=== PATIENT | male | born 1940 | race Caucasian/White ===

== ENCOUNTER 2016-12-03 15:55 | Inpatient (IN) | payer OTHER ==
[~2016-12-03] VITALS: Ht 170.2 cm; Wt 76.0 kg
[2016-12-11] MEDS ORDERED: ALBU0.63 NEB (15:49)
[2016-12-11] MEDS ORDERED: ALBU6.7H INH (15:49)
[2016-12-11] MEDS ORDERED: ALLE10TA12 PO (15:49)
[2016-12-11] MEDS ORDERED: LISI-515 PO (15:49)
[2016-12-11] MEDS ORDERED: TRAM50TA PO (15:49)
[2016-12-11] MEDS ORDERED: TRIA37.53 PO (15:49)
[2016-12-11] MEDS ORDERED: SIMV20TA PO (15:49)
[2016-12-11] MEDS ORDERED: MOBI15TA PO (15:49)
[2016-12-11] MEDS ORDERED: DOCU100T9 PO (15:49)
[2016-12-11] MEDS ORDERED: MONT10TA4 PO (15:49)
[2016-12-11] MEDS ORDERED: TAMS0.4C4 PO (15:49)
[2016-12-11] MEDS ORDERED: IPRA0.02 NEB (15:49)
[2016-12-11] MEDS ORDERED: MESA4ENE2 RECTAL (15:53)
[2016-12-16] MEDS ORDERED: CHLORHEXIDINE GLUCONATE 4% SOLN 120 ML BTL TOPICAL SCH (05:45)
[2016-12-16] MEDS ORDERED: METOPROLOL TARTRATE 25 MG TAB PO PRN (05:45)
[2016-12-16] MEDS ORDERED: INSULIN HUMAN REGULAR 1,000 UNITS/10 ML VIAL SQ PRN (05:45)
[2016-12-16] MEDS ORDERED: POVIDONE IODINE 5% (ANTISEPSIS KIT) 4 APPLICATIONS EACH NARE PRN (05:45)
[2016-12-16] MEDS ORDERED: LACTATED RINGER'S 1000 ML IV PRN (05:45)
[2016-12-16] MEDS ORDERED: VANCOMYCIN 1000 MG/NS 250 ML (for <70 kg) IV SCH ×2 (05:45)
[2016-12-16] MEDS ORDERED: ceFAZolin 2 GM PREMIX 50 ML IV SCH (05:45)
[2016-12-16] MEDS ORDERED: SODIUM CHLORID 0.9% 500 ML IV PRN (05:45)
[2016-12-16] MEDS ORDERED: CHLORHEXIDINE GLUCONATE 2 % 1 PACK (2 CLOTHS) TOPICAL PRN (05:45)
[2016-12-16] MEDS ORDERED: ASPI81TA11 PO (06:44)
[2016-12-16 06:45] VITALS: BP 119/72; PULSE 66; RESP 20; TEMP 98.6; O2SAT 97
[2016-12-16] MEDS ORDERED: MIDAZOLAM HCL 2 MG/2 ML VIAL ONE (07:52)
[2016-12-16] MEDS ORDERED: fentaNYL CITRATE 250 MCG/5 ML AMP ONE ×2 (07:52→12:10)
[2016-12-16] MEDS ORDERED: FAMOTIDINE 20 MG/2 ML VIAL ONE (07:52)
[2016-12-16] MEDS ORDERED: ACETAMINOPHEN 1000 MG/100 ML VIAL IV ONE (07:53)
[2016-12-16] MEDS ORDERED: DEXAMETHASONE SOD PHOS 4 MG/ML VIAL ONE (07:54)
[2016-12-16] MEDS ORDERED: EXPAREL PERI-ARTICULAR INJECTION (TOTAL VOL. 60 ML) P-ARTICULR SCH ×2 (08:00)
[2016-12-16] MEDS ORDERED: TRANEXAMIC ACID INJ 1,150 MG in SODIUM CHLORIDE 0.9% INJ 100 ML IV SCH (08:00)
[2016-12-16] MEDS ORDERED: ceFAZolin INJ 1,000 MG VIAL ONE (08:25)
[2016-12-16] MEDS ORDERED: GENTAMICIN SULFATE 80 MG/2 ML VIAL ONE (08:48)
[2016-12-16] MEDS ORDERED: WALKER WHEELS/F1 MIS (10:03)
[2016-12-16] MEDS ORDERED: XARE10TA PO (10:03)
[2016-12-16] MEDS ORDERED: HYDR-3583 PO (10:03)
[2016-12-16] MEDS ORDERED: diphenhydrAMINE HCL 25 MG CAP PO PRN (11:45)
[2016-12-16] MEDS ORDERED: Post-op Orders (for Pharmacy) MISC XX ONE (11:45)
[2016-12-16] MEDS ORDERED: SODIUM CHLORIDE 0.9% FLUSH 5 ML FLUSH IVF PRN (11:45)
[2016-12-16] MEDS ORDERED: RESP: ALBUTEROL 0.63 MG/3 ML NEB (PRN) NEB (11:45)
[2016-12-16] MEDS ORDERED: MORPHINE SULFATE 4 MG/ML INJ IV PUSH PRN (11:45)
[2016-12-16] MEDS ORDERED: NALOXONE HCL 0.4 MG/ML AMP IV PRN (11:45)
[2016-12-16] MEDS ORDERED: RESP: IPRATROPIUM 0.5 MG/2.5 ML NEB NEB PRN (11:45)
[2016-12-16] MEDS ORDERED: ONDANSETRON HCL 4 MG/2 ML VIAL IVP PRN (11:45)
[2016-12-16] MEDS ORDERED: ALBUTEROL SULFATE 90 MCG/ACT HFA 18 GM INHALER INH PRN (11:45)
--- NOTE | 2016-12-16 11:54 | PD.OP ---
cc: Andre Redmond MD Operative Report Date of Surgery: December 16, 2016 Preoperative Diagnosis: severe hip OA with retained hardware Postoperative Diagnosis: Procedure: Conversion to right total hip arthroplasty with removal of deep hardware Anesthesia: Gen. Surgeon: Andre Redmond Regulatory Affairs Coordinator(s): CHET White PA-C The surgical procedure was assisted by my physician orthopedic assistant. My P.A. presence was necessary throughout this case for the manipulation and positioning of the surgical extremity. My P.A. was assisting me throughout the duration of this procedure. The skill set of a physician orthopedic assistant was medically necessary to complete this procedure. During the surgical case the rad tech was working at the back table and the physician orthopedic assistant was directly assisting me. Operation and Findings: Weight bear as tolerated. DRAINS: 7-mm MARIA ELENA drain. IMPLANTS USED DePuy SROM 16 D large sleeve, 16 x [id number] stem with a size [52] [place]newood Gription cup and a [+9] ceramic Biolox ceramic head. DETAILS OF PROCEDURE: This patient has a long history of hip pain. Patient was found to have severe osteoarthritis. He has a history of 2 prior hip surgeries with retained hardware. The patient had radiographic evidence of joint space narrowing with [id number] arthritis and osteophytes around the acetabulum as well as the femoral head. There was also some cystic changes. The patient failed conservative treatment with pain medications, anti-inflammatories, physical therapy, assistive devices including a cane, as well as therapeutic injection of the hip. The patient wished to proceed with surgery and informed consent was obtained. Operative site was marked. I discussed both posterior approach and anterior approach with patient decision was made for posterior approach. Patient was brought to OR and placed on OR table. IV sedation and general anesthesia was administered by anesthesiologist. Patient was positioned lateral on the operating room table and was given IV antibiotics. Time-out procedure was performed. The operative hip and leg were prepped with alcohol followed by Hibiclens and draped in the usual sterile fashion. Clean Air Suite was used for this procedure. The procedure began with a 10-inch incision over the posterolateral thigh. Subcutaneous tissue was dissected with Bovie. The fascia of the iliotibial band was incised. Gluteus muscle was split in line with fibers. Charnley retractor was placed. Attention was now turned towards hardware removal. The blade plate was carefully exposed. A significant portion of the plate was covered in bone. Osteotomes were used to remove the heterotopic bone over the plate. Next the screws were identified. 3 of the screws were broken. The 2 other screws were removed using a screwdriver. The plate was now elevated using osteotomes. Hardware removal was difficult secondary to the amount of bone covering the plate. The plate was now carefully removed. At this point attention was turned towards removal of the broken screws. There were multiple broken screw fragments. Some of the screw fragments were removed using a broken screw removal set. 2 of the screw fragments could not be retrieved from the intramedullary canal. Piriformis and external rotator muscles were identified and then released from the posterior femur. The hip capsule was incised and sutures were placed to help retract the capsule. At this point the femoral head and neck were identified. With soft tissue protected, oscillating saw was used to make a cut through the femoral neck, the femoral head was now removed. At this point attention was turned to preparation of the acetabulum. The labrum was excised. The acetabulum was sequentially reamed appropriately. Care was taken to maintain appropriate version. A trial cup was placed and was found to be a good fit. A Wynnewood cup was now fully impacted into the acetabulum and found to have excellent fit. Hole eliminator was now placed. The liner was now impacted into the cup. At this point attention was turned towards preparation of the proximal femur. Retractors were placed around the proximal femur to allow for exposure. A box osteotome was used to remove the lateral cortex of the femoral neck. A broach was used to help lateralize the prosthesis. Canal finder was used to create a path down the canal. Next, the canal was sequentially reamed. The canal was reamed up to size 11.5. The reamer was placed down to a depth of 205 mm. This had a relatively good fit. Unfortunately one of the broken screws was still in the path of the reamer and cannot be retrieved. At this point the proximal segment was reamed up to size 16. The calcar was now milled up to size 16 D large. A trial prosthesis was now assembled. The trial prosthesis was now placed into the canal. Care was taken to keep appropriate anteversion. The neck was adjusted into appropriate anteversion. A trial +9 head was placed and the hip was reduced. Trial head was now was placed and the hip was found to have excellent stability with good range of motion. The leg lengths were measured under clinically and found to be equal compared to preoperatively. Trial prosthesis was removed. The stem components were now opened. The sleeve was impacted in position first. Next the stem was placed through the sleeve and impacted in appropriate version. The femoral head was placed. The hip was again reduced. Clinically leg lengths appeared to be equal with good range of motion of the hip. The wound was thoroughly irrigated. Hip capsule, external rotators, and iliotibial band was closed with #1 Vicryl. A drain was placed deep into the wound. Subcutaneous tissue was closed with 3-0 Vicryl and the skin was closed with james and Dermabond skin closure. The capsule layers were injected with a mixture of saline and bupivicaine. Dressings were applied. The patient was transferred to Recovery Room in stable condition. Andre Redmond MD December 16, 2016 11:54
[2016-12-16] MEDS ORDERED: DO NOT ADM ANY ANTICOAGULANT DRUGS PRN (12:00)
[2016-12-16] MEDS ORDERED: LACTATED RINGER'S 1000 ML INJ 1,000 ML IV ONE (12:00)
[2016-12-16] MEDS ORDERED: PROPOFOL 200 MG/20 ML AMP IV ONE (12:00)
[2016-12-16] MEDS ORDERED: ONDANSETRON HCL 4 MG/2 ML VIAL IV PUSH ONE (12:00)
[2016-12-16] MEDS ORDERED: ePHEDrine/NS 25 MG/5 ML SYR IV ONE (12:00)
[2016-12-16] MEDS ORDERED: *morphine SULFATE 8 MG/ML PERIprocedure ONLY ONE ×2 (12:08→12:45)
[2016-12-16] MEDS: ceFAZolin 2 GM PREMIX 50 ML IV SCH ×2 (13:47→21:12)
[2016-12-16] MEDS: KETOROLAC TROMETHAMINE 30 MG/ML (IVP) VIAL IV PUSH SCH ×2 (13:48→21:11)
--- NOTE | 2016-12-16 13:49 | RADRPT ---
EXAM DATE/TIME: 12/16/2016 13:21 [facility] COMPARISON: No previous studies available for comparison. INDICATIONS : Post op right hip arthroplasty. MEDICAL HISTORY : None. SURGICAL HISTORY : None. ENCOUNTER: Initial ACUITY: 1 day PAIN SCORE: 0/10 LOCATION: Right hip FINDINGS: Patient is status post placement of a right hip prosthesis. There is good position and alignment of t he prosthesis and bony structures. The bony structures are grossly intact. Postsurgical changes are p resent. CONCLUSION: Good position and alignment on this postoperative examination. Gino Gruber MD on December 16, 2016 at 13:47 Board Certified Radiologist. This report was verified electronically.
[2016-12-16 15:00] VITALS: BP 116/67; PULSE 60; RESP 17; TEMP 95.7; O2SAT 100
[2016-12-16] MEDS: VANCOMYCIN INJ 1,000 MG in SODIUM CHLOR 0.9% 250 ML INJ 250 ML IV SCH (18:34)
[2016-12-16 20:15] VITALS: BP 112/68; PULSE 81; RESP 17; TEMP 97.8; O2SAT 99
[2016-12-16] MEDS ORDERED: DOCUSATE SODIUM 200 MG PO SCH (21:00)
[2016-12-16] MEDS: ACETAMINOPHEN/HYDROcodone 325 MG/10 MG TAB PO PRN (21:10)
[2016-12-16] MEDS: PRAVASTATIN SOD 20 MG TAB PO SCH (21:11)
[2016-12-16] MEDS: MONTELUKAST SODIUM 10 MG TAB PO SCH (21:12)
[2016-12-16] MEDS: SODIUM CHLORIDE 0.9% FLUSH 5 ML FLUSH IVF SCH (21:12)
[2016-12-17] VITALS (8 sets, daily range): BP systolic 98–139; BP diastolic 59–66; PULSE 70–95; RESP 15–18; TEMP 97.3–99.2; O2SAT 96–100
[2016-12-17] MEDS: ceFAZolin 2 GM PREMIX 50 ML IV SCH (02:23)
[2016-12-17] MEDS: ACETAMINOPHEN/HYDROcodone 325 MG/10 MG TAB PO PRN ×4 (02:25→22:00)
[2016-12-17] MEDS: KETOROLAC TROMETHAMINE 30 MG/ML (IVP) VIAL IV PUSH SCH ×2 (05:27→14:36)
[2016-12-17] MEDS: VANCOMYCIN INJ 1,000 MG in SODIUM CHLOR 0.9% 250 ML INJ 250 ML IV SCH (06:09)
--- NOTE | 2016-12-17 06:46 | PD.ORT.PN ---
Subjective Subjective Remarks POD 1 s/p LOIS with revision right SUSAN doing well. pain controlled. no complaints. sat in chair yesterday Objective Vitals Vital Signs Date Time Temp Pulse Resp B/P Pulse Ox O2 Delivery O2 Flow Rate FiO2 12/17/16 04:35 97.7 70 17 100/60 100 12/17/16 00:15 98.2 75 18 98/59 100 12/16/16 20:15 97.8 81 17 112/68 99 12/16/16 18:11 Nasal Cannula 2.00 12/16/16 15:00 95.7 60 17 116/67 100 12/16/16 13:30 66 19 116/61 98 Nasal Cannula 2 12/16/16 13:15 64 21 117/56 97 Nasal Cannula 2 12/16/16 13:00 65 20 108/58 97 Nasal Cannula 2 12/16/16 12:30 66 17 91/58 98 Nasal Cannula 2 12/16/16 12:15 76 23 110/62 98 Nasal Cannula 2 12/16/16 12:05 97.4 80 20 127/67 99 Nasal Cannula 2 12/16/16 06:45 98.6 66 20 119/72 97 I/O 12/16/16 12/16/16 12/16/16 12/17/16 12/17/16 12/17/16 06:59 14:59 22:59 06:59 14:59 22:59 Intake Total 800 ml 809 ml 313 ml Output Total 1430 ml 540 ml 80 ml Balance -630 ml 269 ml 233 ml Intake Oral 480 ml IV Total 329 ml 313 ml Other 800 ml Output Urine Total 550 ml 450 ml Drainage Total 80 ml 90 ml 80 ml Estimated Blood Loss 800 ml # Bowel Movements 0 Objective Remarks RLE: Dressings clean and dry. intact. +drain. +knee brace. NVI Assessment & Plan Assessment and Plan 1) Right SUSAN with LOIS - POD 1 -WBAT -posterior hip precautions -daily dressing changes POD 2 -plan for DC to rehab vs home with C depending on progress -f/u with [facility] or [facility] in 2 weeks -DVT prophylaxis with lovenox. transition to xarelton upon DC Claudio Reese December 17, 2016 06:46
--- NOTE | 2016-12-17 06:47 | HHI.FF ---
Face to Face Verification Diagnosis: (1) Status post total hip replacement, right Physical Therapy Gait training Hip: Total hip, Protocol: Right, Posterior hip precautions, Progress to weight bearing Right LE Weight Bearing: WB as tolerated Nursing Dressing Changes: Daily dressing change, 4x4s, Paper tape, Xeroform I have seen patient Ar Salazar on 12/17/16. My clinical findings support the need for the requested home health care services because: Ltd mobility - disease progression I certify that my clinical findings support that this patient is homebound because: Post-op weakness Claudio Reese December 17, 2016 06:47
[2016-12-17 07:07] LABS: HEMATOCRIT 29.6 % (39.0-51.0); REVIEW FLAG FINAL
[2016-12-17] MEDS: SODIUM CHLORIDE 0.9% FLUSH 5 ML FLUSH IVF SCH ×2 (09:00→21:00)
[2016-12-17] MEDS: TAMSULOSIN HCL 0.4 MG CAP PO SCH (09:06)
[2016-12-17] MEDS: TRIAMTERENE/HCTZ 37.5 MG/25 MG CAP PO SCH (11:55)
[2016-12-17] MEDS: LISINOPRIL 10 MG TAB PO SCH (11:56)
[2016-12-17] MEDS: ENOXAPARIN SODIUM 30 MG/0.3 ML SYRINGE SQ SCH ×2 (11:58→22:00)
[2016-12-17] MEDS: DOCUSATE SODIUM 100 MG CAP PO SCH (21:59)
[2016-12-17] MEDS: PRAVASTATIN SOD 20 MG TAB PO SCH (22:00)
[2016-12-17] MEDS: MONTELUKAST SODIUM 10 MG TAB PO SCH (22:00)
[2016-12-18 00:55] VITALS: BP 103/53; PULSE 90; RESP 17; TEMP 99; O2SAT 95
[2016-12-18] MEDS: MAGNESIUM HYDROXIDE SUSP 30 ML CUP PO PRN ×2 (05:13→20:25)
[2016-12-18] MEDS: ACETAMINOPHEN/HYDROcodone 325 MG/10 MG TAB PO PRN ×3 (06:38→18:42)
[2016-12-18 08:00] VITALS: BP 100/62; PULSE 88; RESP 18; TEMP 99; O2SAT 97
[2016-12-18] MEDS: LISINOPRIL 10 MG TAB PO SCH (09:00)
[2016-12-18] MEDS: TRIAMTERENE/HCTZ 37.5 MG/25 MG CAP PO SCH (09:00)
[2016-12-18] MEDS: MESALAMINE ENEMA 4 GM/60 ML BTL RECTAL SCH (09:00)
--- NOTE | 2016-12-18 09:46 | PD.ORT.PN ---
Subjective Subjective Remarks Pain is controlled. Difficulty ambulating. Exploring rehabilitation center placement Objective Vitals Vital Signs Date Time Temp Pulse Resp B/P Pulse Ox O2 Delivery O2 Flow Rate FiO2 12/18/16 08:00 99.0 88 18 100/62 97 12/18/16 00:55 99.0 90 17 103/53 95 12/17/16 20:25 99.1 95 18 116/65 96 12/17/16 18:07 98 21 12/17/16 16:00 99.2 95 16 106/65 99 12/17/16 15:36 16 12/17/16 15:36 16 12/17/16 12:00 97.8 80 15 139/65 100 I/O 12/17/16 12/17/16 12/17/16 12/18/16 12/18/16 12/18/16 07:00 15:00 23:00 07:00 15:00 23:00 Intake Total 553 ml 840 ml 240 ml 480 ml Output Total 1080 ml 950 ml 430 ml 880 ml Balance -527 ml -110 ml -190 ml -400 ml Intake Oral 240 ml 840 ml 240 ml 480 ml IV Total 313 ml Output Urine Total 1000 ml 950 ml 300 ml 850 ml Drainage Total 80 ml 130 ml 30 ml # Voids 4 # Bowel Movements 0 0 0 Result Diagram: 12/17/16 0608 Imaging Last 72 hours Impressions Hip and Pelvis X-Ray 12/16/16 0000 Signed Impressions: Service Date/Time: Friday, December 16, 2016 13:21 - CONCLUSION: Good position and alignment on this postoperative examination. Gino Gruber MD Objective Remarks Right lower extremity: Clean dry dressings intact. Drain in place. Knee immobilizer. Distally intact sensation good capillary refills. Strong dorsiflexion plantar flexion Assessment & Plan Assessment and Plan 1) Right SUSAN with LOIS - POD 2 -WBAT -posterior hip precautions -daily dressing changes DC the drain today after physical therapy -plan for DC to rehab -f/u with [facility] or [facility] in 2 weeks -DVT prophylaxis with lovenox. transition to xarelto upon DC John Naylor Jr. Dec 18, 2016 09:46
[2016-12-18] MEDS: DOCUSATE SODIUM 100 MG CAP PO SCH ×2 (09:58→20:15)
[2016-12-18] MEDS: TAMSULOSIN HCL 0.4 MG CAP PO SCH (09:58)
[2016-12-18] MEDS: ENOXAPARIN SODIUM 30 MG/0.3 ML SYRINGE SQ SCH ×2 (10:11→22:35)
[2016-12-18] MEDS: SODIUM CHLORIDE 0.9% FLUSH 5 ML FLUSH IVF SCH ×2 (10:13→20:17)
[2016-12-18 12:00] VITALS: BP 122/79; PULSE 90; RESP 18; TEMP 98.6; O2SAT 100
[2016-12-18 16:00] VITALS: BP 110/64; PULSE 95; RESP 18; TEMP 99.8; O2SAT 98
[2016-12-18] MEDS: PRAVASTATIN SOD 20 MG TAB PO SCH (20:14)
[2016-12-18] MEDS: MONTELUKAST SODIUM 10 MG TAB PO SCH (20:15)
[2016-12-18 20:30] VITALS: BP 134/73; PULSE 105; RESP 17; TEMP 96.2; O2SAT 95
[2016-12-19] VITALS: BP 97/63; PULSE 100; RESP 18; TEMP 99.1; O2SAT 98
[2016-12-19] MEDS: ACETAMINOPHEN/HYDROcodone 325 MG/10 MG TAB PO PRN ×4 (02:32→22:07)
[2016-12-19 04:30] VITALS: BP 104/64; PULSE 96; RESP 18; TEMP 98.2; O2SAT 96
--- NOTE | 2016-12-19 07:33 | PD.ORT.PN ---
Subjective Subjective Remarks POD 3 s/p LOIS with revision right SUSAN doing well. pain controlled. reports slight pain but walking with therapy with minimal difficulty Objective Vitals Vital Signs Date Time Temp Pulse Resp B/P Pulse Ox O2 Delivery O2 Flow Rate FiO2 12/19/16 04:30 98.2 96 18 104/64 96 12/19/16 00:00 99.1 100 18 97/63 98 12/18/16 20:30 96.2 105 17 134/73 95 12/18/16 16:00 99.8 95 18 110/64 98 12/18/16 12:00 98.6 90 18 122/79 100 12/18/16 08:00 99.0 88 18 100/62 97 12/18/16 07:38 16 I/O 12/18/16 12/18/16 12/18/16 12/19/16 12/19/16 12/19/16 07:00 15:00 23:00 07:00 15:00 23:00 Intake Total 480 ml 980 ml 480 ml 480 ml Output Total 880 ml 300 ml 100 ml Balance -400 ml 680 ml 380 ml 480 ml Intake Oral 480 ml 980 ml 480 ml 480 ml Output Urine Total 850 ml 275 ml 100 ml Drainage Total 30 ml 25 ml # Voids 3 1 3 # Bowel Movements 0 0 0 2 Result Diagram: 12/17/16 0608 Imaging Last 72 hours Impressions Hip and Pelvis X-Ray 12/16/16 0000 Signed Impressions: Service Date/Time: Friday, December 16, 2016 13:21 - CONCLUSION: Good position and alignment on this postoperative examination. Gino Gruber MD Objective Remarks Right lower extremity: Clean dry dressings intact. Drain in place. Knee immobilizer. Distally intact sensation good capillary refills. Strong dorsiflexion plantar flexion Assessment & Plan Assessment and Plan 1) Right SUSAN with LOIS - POD 3 -WBAT -posterior hip precautions -daily dressing changes -plan for DC to rehab today -f/u with [facility] or [facility] in 2 weeks -DVT prophylaxis with lovenox. transition to xarelto upon DC Claudio Reese Dec 19, 2016 07:33
[2016-12-19 08:00] VITALS: BP 125/70; PULSE 84; RESP 18; TEMP 97.4; O2SAT 98
[2016-12-19] MEDS: TAMSULOSIN HCL 0.4 MG CAP PO SCH (08:00)
[2016-12-19] MEDS: TRIAMTERENE/HCTZ 37.5 MG/25 MG CAP PO SCH (08:00)
[2016-12-19] MEDS: LISINOPRIL 10 MG TAB PO SCH (08:00)
[2016-12-19] MEDS: DOCUSATE SODIUM 100 MG CAP PO SCH ×2 (08:00→19:50)
[2016-12-19] MEDS: SODIUM CHLORIDE 0.9% FLUSH 5 ML FLUSH IVF SCH ×2 (09:00→19:50)
[2016-12-19] MEDS: ENOXAPARIN SODIUM 30 MG/0.3 ML SYRINGE SQ SCH ×2 (11:36→22:07)
[2016-12-19 12:00] VITALS: BP 102/62; PULSE 97; RESP 18; TEMP 98.5; O2SAT 97
[2016-12-19] MEDS: MONTELUKAST SODIUM 10 MG TAB PO SCH (19:49)
[2016-12-19] MEDS: PRAVASTATIN SOD 20 MG TAB PO SCH (19:49)
[2016-12-19 20:55] VITALS: BP 94/53; PULSE 96; RESP 17; TEMP 99; O2SAT 97
[2016-12-20 00:55] VITALS: BP 100/59; PULSE 91; RESP 18; TEMP 97.8; O2SAT 99
[2016-12-20 04:35] VITALS: BP 105/69; PULSE 77; RESP 17; TEMP 96.6; O2SAT 98
[2016-12-20] MEDS: ACETAMINOPHEN/HYDROcodone 325 MG/10 MG TAB PO PRN ×2 (06:06→12:06)
--- NOTE | 2016-12-20 06:50 | PD.ORT.PN ---
Subjective Subjective Remarks pt doing better, ready to be discharged to SNF today, still awaiting auth denies any chest pain, denies SOB Objective Vitals Vital Signs Date Time Temp Pulse Resp B/P Pulse Ox O2 Delivery O2 Flow Rate FiO2 12/20/16 04:35 96.6 77 17 105/69 98 12/20/16 00:55 97.8 91 18 100/59 99 12/19/16 20:55 99.0 96 17 94/53 97 12/19/16 12:00 98.5 97 18 102/62 97 12/19/16 08:00 97.4 84 18 125/70 98 I/O 12/19/16 12/19/16 12/19/16 12/20/16 12/20/16 12/20/16 07:00 15:00 23:00 07:00 15:00 23:00 Intake Total 480 ml 480 ml Output Total 300 ml Balance 480 ml 180 ml Intake Oral 480 ml 480 ml Output Urine Total 300 ml # Voids 3 1 # Bowel Movements 2 1 Result Diagram: 12/17/16 0608 Imaging Last 72 hours Impressions Hip and Pelvis X-Ray 12/16/16 0000 Signed Impressions: Service Date/Time: Friday, December 16, 2016 13:21 - CONCLUSION: Good position and alignment on this postoperative examination. Gino Gruber MD Objective Remarks seen by Dr. Toby Armstrong Right lower extremity: Clean dry dressings intact Knee immobilizer Distally intact sensation good capillary refills, no calf tenderness Assessment & Plan Assessment and Plan 1) Right SUSAN with LOIS - POD #4 -WBAT -posterior hip precautions -daily dressing changes -plan for DC to rehab today if auth received -f/u with [facility] or [facility] in 2 weeks -DVT prophylaxis with lovenox. transition to xarelto upon DC Oksana Garcia Dec 20, 2016 06:50
[2016-12-20 08:00] VITALS: BP 120/68; PULSE 74; RESP 16; TEMP 97.6; O2SAT 100
[2016-12-20] MEDS: MESALAMINE ENEMA 4 GM/60 ML BTL RECTAL SCH (09:00)
[2016-12-20] MEDS: SODIUM CHLORIDE 0.9% FLUSH 5 ML FLUSH IVF SCH (09:00)
[2016-12-20] MEDS: TRIAMTERENE/HCTZ 37.5 MG/25 MG CAP PO SCH (09:00)
[2016-12-20] MEDS: LISINOPRIL 10 MG TAB PO SCH (09:00)
[2016-12-20] MEDS: TAMSULOSIN HCL 0.4 MG CAP PO SCH (09:18)
[2016-12-20] MEDS: DOCUSATE SODIUM 100 MG CAP PO SCH (09:18)
[2016-12-20 12:00] VITALS: BP 105/65; PULSE 85; RESP 16; TEMP 97.4; O2SAT 99
[2016-12-20] MEDS: ENOXAPARIN SODIUM 30 MG/0.3 ML SYRINGE SQ SCH (12:06)
--- NOTE | 2016-12-25 13:49 | HHI.DS ---
Discharge Summary Admission Date December 16, 2016 at 05:10 Discharge Date: Dec 19, 2016 Admitting Diagnosis severe osteoarthritis of right hip with retained hardware (1) Status post total hip replacement, right Diagnosis: Principal Procedures removal of hardware and right total hip arthroplasty Brief History patient is known to Dr. Redmond for long time pain from worsening pain from osteoarthritis. Surgery was performed many years ago and continued to develop avascular necrosis and arthritic changes surgery is arranged for removal of hardware and conversion to right total hip arthroplasty. Conservative measures have failed for pain control which included anti-inflammatories, lifestyle modifications, steroid injections and assistive devices Hospital Course patient is admitted to [facility] and taken to the operating room. Surgery is performed to remove hardware and a right total hip arthroplasty is performed. There are no complications. Patient is transferred to [address] [place] [address] and remains hemodynamically stable and pain controlled. He progresses slow with physical therapy but lives alone. Due to slow progression and the need for full assistance, arrangements are made for discharge to rehabilitation. After 3 days he is discharged to longterm facility Pt Condition on Discharge: Good Discharge Disposition: Discharge to SNF Discharge Instructions DIET: Follow Instructions for: As Tolerated, No Restrictions Activities you can perform: Full Weight Bearing Activities to avoid: Shower Follow up Referrals: Orthopedics - 12/30/16 @ [facility] with Andre Redmond MD New Medications: Hydrocodone-Acetaminophen (Hydrocodone-Acetaminophen) 10-325 mg Tab 1 TAB PO Q4H PRN PAIN #60 Ref 0 TAB Rivaroxaban (Xarelto) 10 Mg Tab 10 MG PO DAILY Blood Clot Prevention #21 Ref 0 TAB Walker with Front Wheels (Walker with Front Wheels) 1 Mis Mis 1 EA .ROUTE DIRECTED #1 Ref 0 EA Continued Medications: Albuterol 6.7 GM Inh (Proventil Hfa 6.7 GM Inh) 90 Mcg/Act Aer 2 PUFF INH BID PRN SHORTNESS OF BREATH #1 Ref 0 INHALER Albuterol Neb (Albuterol Neb) 0.63 Mg/3 Ml Neb 0.63 MG NEB Q4HR NEB PRN SHORTNESS OF BREATH #25 Ref [address] (Aspirin EC) 81 Mg Tabdr 81 MG PO DAILY Ref 0 TAB Docusate Sodium (Docusate Sodium) 100 Mg Tab 200 MG PO HS Constipation TAB Ipratropium Neb (Ipratropium Neb) 0.5 Mg/2.5 Ml Amp 0.5 MG NEB Q4HR NEB PRN SHORTNESS OF BREATH Ref 0 NEBULE Lisinopril (Lisinopril) 20 Mg Tab 10 MG PO DAILY #30 Ref 0 TAB Loratadine Odt (Allergy Odt) 10 Mg Tab 1 TAB PO DAILY PRN ALLERGIES Mesalamine Enema (Mesalamine Enema) 4 Gm/60 Ml Enem 4 GM RECTAL EVERY OTHER NIGHT Ulcerative Colitis Ref 0 BOTTLE Montelukast (Montelukast) 10 Mg Tab 10 MG PO HS #30 Ref 0 TAB Simvastatin (Simvastatin) 20 Mg Tab 10 MG PO HS Cholesterol Management #30 Ref 0 TAB Tamsulosin (Tamsulosin) 0.4 Mg Cap 0.4 MG PO DAILY Manage Prostate Problems #30 Ref 0 CAP Triamterene-Hydrochlorothiazide (Triamterene-Hydrochlorothiazide) 37.5-25 Mg Cap 1 CAP PO DAILY #30 Ref 0 CAP Discontinued Medications: Meloxicam (Mobic) 15 Mg Tab 30 MG PO BID Ref 0 TAB Tramadol (Tramadol) 50 Mg Tab 100 MG PO Q6H PRN PAIN Ref 0 TAB John Naylor Jr. Dec 25, 2016 13:49
== END 2016-12-20 15:41 | DRG 470 ==
LOC: HSDI 12-16 05:10 → N06A 12-16 14:12
PROVIDERS: ADMIT Orthopaedic Surgery Orthopaedic Trauma; ATTEND Orthopaedic Surgery Orthopaedic Trauma
PROC: 0SR903Z Replacement of Right Hip Joint with Ceramic Synthetic Substitute, Open Approach (ICD-10-PCS; principal; 2016-12-16 08:16)
PROC: 0QP604Z Removal of Internal Fixation Device from Right Upper Femur, Open Approach (ICD-10-PCS; 2016-12-16 08:16)
DX: M16.10 Unilateral primary osteoarthritis, unspecified hip (principal); T84.114A Breakdown (mechanical) of internal fixation device of right femur, initial encounter; J44.9 Chronic obstructive pulmonary disease, unspecified; I10 Essential (primary) hypertension; M25.751 Osteophyte, right hip; Y83.1 Surgical operation with implant of artificial internal device as the cause of abnormal reaction of the patient, or of later complication, without mention of misadventure at the time of the procedure; E78.5 Hyperlipidemia, unspecified; Z85.46 Personal history of malignant neoplasm of prostate; Z85.51 Personal history of malignant neoplasm of bladder; Z87.891 Personal history of nicotine dependence
CPT/HCPCS: 73502; 76000; 85014; 85018; 86850; 86900; 86901; C1776; C9290; J0131; J0690; J1100; J1580; J1650; J1885; J2250; J2270; J2405; J3010; J3370; J7050; J7120; L1830